=== PATIENT | male | born 1990 | race Caucasian/White ===

== ENCOUNTER 2018-09-16 08:31 | Inpatient (IN) ==
[2018-09-16] MEDS ORDERED: CEFTAROLINE 600 MG in SODIUM CHLORIDE 0.9% 100 ML IV STA (09:44)
[2018-09-16] MEDS ORDERED: HYDROmorphone 2 MG/1 ML VIAL IV STA (09:44)
[2018-09-16] MEDS ORDERED: ONDANSETRON 4 MG/2 ML VIAL IV STA (09:44)
[2018-09-16] MEDS ORDERED: SODIUM CHLORIDE 0.9% 1,000 ML IV SCH (10:00)
[2018-09-16] MEDS ORDERED: ONDANSETRON 4 MG/2 ML VIAL IV PRN (10:03)
[2018-09-16] MEDS ORDERED: HYDROmorphone 2 MG/1 ML VIAL IV PRN (10:03)
[2018-09-16] MEDS ORDERED: ACETAMINOPHEN 325 MG TABLET PO PRN (10:03)
[2018-09-16] MEDS ORDERED: KETOROLAC 10 MG TABLET PO PRN (10:03)
[2018-09-16] MEDS ORDERED: PIPERACILLIN/TAZOBACTAM 3,375 MG in SODIUM CHLORIDE 0.9% 100 ML IV SCH (10:30)
[2018-09-16 10:34] LABS: Basophils # 0.1 10*3/uL (0.0-0.2); Basophils % 0.4 % (0.0-0.8); Eosinophils # 0.2 10*3/uL (0.0-0.87); Eosinophils % 1.8 % (0.00-10.9); Hematocrit 41.8 VOL% (42.0-52.0); Immature Granulocytes % 0.4 %; Immature Granulocytes Absolute 0.05 #; Lymphocytes # 1.3 10*3/uL (1.4-4.0); Mean Corpuscular HGB Conc 33.5 GM/DL (32-36); Mean Corpuscular Hemoglobin 31 PG (27-34); Mean Corpuscular Volume 93.3 FL (87-102); Mean Platelet Volume 8.4 FL (9.6-12.0); Monocytes # 1.4 10*3/uL (0.11-0.8); Monocytes % 11.2 % (1.7-12.7); Neutrophils # 9.5 10*3/uL (1.4-7.4); Neutrophils % 76.2 % (38.7-73.9); Platelet Count 247 T/CUMM (130-400); Red Blood Count 4.48 MC/CUMM (3.8-5.5); Red Cell Distribution Width 11.9 % (9.3-17.3); White Blood Count 12.4 T/CUMM (4-12)
[2018-09-16 11:00] LABS: Albumin 3.3 G/DL (3.4-5.0); Bilirubin,Total 0.6 MG/DL (0.2-1.0); Calcium 8.7 MG/DL (8.5-10.1); Osmolality,Calculated 272.7 MOS/KG (273-304); Potassium 4.4 MMOL/L (3.5-5.1); Total Protein 7.7 G/DL (6.4-8.3)
[2018-09-16] MEDS ORDERED: LIDOCAINE 2% TOP JELLY 5 ML TUBE TOP ONE (11:22)
[2018-09-16] MEDS ORDERED: BUPIVACAINE 0.5% 50 ML VIAL ONE (11:23)
[2018-09-16] MEDS ORDERED: PROPOFOL 200 MG/20 ML VIAL IV ONE (12:54)
[2018-09-16] MEDS ORDERED: fentaNYL 100 MCG/2 ML VIAL ONE ×2 (12:54→12:58)
[2018-09-16] MEDS ORDERED: MIDAZOLAM 2 MG/2 ML VIAL ONE (12:54)
[2018-09-16] MEDS ORDERED: SUCCINYLCHOLINE 200 MG/10 ML VIAL ONE (12:55)
[2018-09-16] MEDS ORDERED: ROCURONIUM 100 MG/10 ML VIAL IV ONE (12:55)
[2018-09-16] MEDS ORDERED: SEVOFLURANE 1 UNIT/15 MINUTE INH ONE (12:55)
[2018-09-16] MEDS: SULFAMETHOX/TRIMETHOPRIM 800-160 MG TABLET PO SCH ×2 (14:38→21:12)
[2018-09-16] MEDS: LACTATED RINGERS 1,000 ML IV SCH ×2 (14:41→22:30)
[2018-09-16] MEDS: DOCUSATE SODIUM 100 MG CAPSULE PO SCH (21:12)
[2018-09-17] MEDS: LACTATED RINGERS 1,000 ML IV SCH ×2 (02:05→06:00)
[2018-09-17 05:11] LABS: Basophils # 0.1 10*3/uL (0.0-0.2); Basophils % 0.9 % (0.0-0.8); Eosinophils # 0.6 10*3/uL (0.0-0.87); Eosinophils % 7.8 % (0.00-10.9); Hematocrit 36.9 VOL% (42.0-52.0); Hemoglobin 12.2 GM/DL (14.0-18.0); Immature Granulocytes % 0.4 %; Immature Granulocytes Absolute 0.03 #; Lymphocytes # 2.1 10*3/uL (1.4-4.0); Lymphocytes % 25.5 % (21.2-54.2); Mean Corpuscular HGB Conc 33.1 GM/DL (32-36); Mean Corpuscular Hemoglobin 31 PG (27-34); Mean Corpuscular Volume 95.1 FL (87-102); Mean Platelet Volume 8.6 FL (9.6-12.0); Monocytes # 0.8 10*3/uL (0.11-0.8); Monocytes % 10.4 % (1.7-12.7); Neutrophils # 4.5 10*3/uL (1.4-7.4); Platelet Count 229 T/CUMM (130-400); Red Blood Count 3.88 MC/CUMM (3.8-5.5); White Blood Count 8.1 T/CUMM (4-12)
[2018-09-17 05:28] LABS: Calcium 8.2 MG/DL (8.5-10.1); Osmolality,Calculated 271.8 MOS/KG (273-304); Potassium 4.1 MMOL/L (3.5-5.1)
[2018-09-17] MEDS ORDERED: PANTOPRAZOLE 40 MG TABLET PO SCH (09:00)
[2018-09-17] MEDS ORDERED: LORATADINE 10 MG TABLET PO SCH (09:00)
[2018-09-17] MEDS ORDERED: CIPROFLOXACIN 500 MG TABLET PO SCH (10:00)
[2018-09-17] MEDS: DOCUSATE SODIUM 100 MG CAPSULE PO SCH (10:02)
[2018-09-17] MEDS: SULFAMETHOX/TRIMETHOPRIM 800-160 MG TABLET PO SCH (10:25)
[2018-09-17] MEDS ORDERED: ONDANSETRON 4 MG/2 ML VIAL IV ONE (10:34)
[2018-09-17 12:12] VITALS: BP 126/65
== END 2018-09-17 14:36 | disposition home or self-care (01) | DRG 395 ==
LOC: N.ED 08:31 → N.3E 11:07
PROVIDERS: ADMIT Surgery; ATTEND Surgery